=== PATIENT | male | born 1990 | race Caucasian/White ===

== ENCOUNTER 2019-05-17 22:33 | Emergency (ER) | payer SELFPAY ==
[~2019-05-17] VITALS: Ht 188 cm; Wt 108.9 kg
[2019-05-17 22:40] VITALS: BP_SYST 132
--- NOTE | 2019-05-17 22:40 | NUR ---
Patient to ER bed 6 to gown for evaluation. Side rails up. Report given to Rashad CHATMAN.
--- NOTE | 2019-05-17 22:44 | NUR ---
ER at bedside examining patient.
--- NOTE | 2019-05-17 22:44 | NUR ---
Pt ambulates into ER with c/o cough, sore throat, fever and body aches. Pt states symptoms started yesterday. Pt states he did not get flu show this season. Pt denies nausea, vomiting, SOB, and diarrhea. Will continue to monitor.
[2019-05-18] MEDS ORDERED: ACETAMINOPHEN 500 MG TABLET PO ONE
--- NOTE | 2019-05-18 00:05 | NUR ---
Recieved orders of Tylenol Extra Strength 1000mg from ER MD Salgado to give to pt. Medication given. Pt tolerated well.
[2019-05-18 00:15] VITALS: BP_SYST 115
--- NOTE | 2019-05-18 00:15 | NUR ---
Patient given written and verbal discharge instructions and verbalizes understanding. ER MD Salgado discussed with patient the results and treatment provided. Patient in stable condition. ID arm band removed. Rx of Promethazine Hydrochloride/Dextromethorphan Hydrobromide and tamiflu given. Patient educated on pain management and to follow up with PMD. Pain Scale 2/10. Opportunity for questions provided and answered. Medication side effect fact sheet provided.
== END 2019-05-18 00:15 | disposition home or self-care (01) ==
LOC: SED 22:33
DX: J10.1 Influenza due to other identified influenza virus with other respiratory manifestations (principal)
CPT/HCPCS: 36415; 86710; 99283

== ENCOUNTER 2021-02-08 23:14 | Emergency (ER) | payer OTHER ==
[~2021-02-08] VITALS: Ht 185.4 cm; Wt 108.9 kg
[2021-02-08 23:25] VITALS: BP_SYST 127
--- NOTE | 2021-02-08 23:30 | NUR ---
Patient to ER bed 7 to gown for evaluation. Side rails up. Report given to ALEX CHATMAN.
[2021-02-08] MEDS ORDERED: IBUPROFEN 800 MG TABLET PO ONE (23:45)
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
--- NOTE | 2021-02-08 23:52 | NUR ---
DR. SPAIN AT BEDSIDE FOR EVALUATION.
--- NOTE | 2021-02-08 23:55 | NUR ---
MEDICATION ADMINISTERED AT THIS TIME ORDERED. PT TAKEN TO XRAY VIA AMBULATORY WITH RADIOLOGY STAFF.
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
--- NOTE | 2021-02-09 01:11 | NUR ---
Patient resting quietly. No acute distress noted. Vital signs within normal range.
[2021-02-09] MEDS ORDERED: CYCL10TA9 PO (01:28)
[2021-02-09] MEDS ORDERED: KETO10TA2 PO (01:28)
[2021-02-09 01:40] VITALS: BP_SYST 127
--- NOTE | 2021-02-09 01:40 | NUR ---
Patient given written and verbal discharge instructions and verbalizes understanding. DR. GRABIEL MARK MD discussed with patient the results and treatment provided. Patient in stable condition. ID arm band removed. Rx of CYCLOBENAZAPRINE, KETOROLAC given. Patient educated on pain management and to follow up with PMD. Pain Scale 0/10 Opportunity for questions provided and answered. Medication side effect fact sheet provided.
== END 2021-02-09 01:40 | disposition home or self-care (01) ==
LOC: SED 23:14
DX: M25.512 Pain in left shoulder (principal); M54.5 Low back pain; M54.2 Cervicalgia; Z79.899 Other long term (current) drug therapy; V43.62XA Car passenger injured in collision with other type car in traffic accident, initial encounter; Y93.89 Activity, other specified; Y92.89 Other specified places as the place of occurrence of the external cause; Y99.8 Other external cause status
CPT/HCPCS: 72080-TC; 73030; 99284